=== PATIENT | male | born 1990 | race Caucasian/White ===

== ENCOUNTER 2017-09-18 14:06 | Emergency (ER) | payer OTHER ==
[~2017-09-18] VITALS: Ht 175.3 cm; Wt 68.0 kg
[2017-09-19 17:23] LABS: HCV Non Reactive (NR)
== END 2017-09-18 15:18 | disposition home or self-care (01) ==
LOC: ER 14:06
PROVIDERS: Physician Assistant
DX: Z77.21 Contact with and (suspected) exposure to potentially hazardous body fluids (principal)
CPT/HCPCS: 36415; 84460; 86703; 86706; 86803; 87340; 87389; 99283

== ENCOUNTER → 2017-12-18 | Outpatient (CLI) | payer OTHER, BC ==
[2017-12-20 03:23] LABS: HIV SCREEN 4TH GENERATION WRFX Non Reactive (Non Reactive)
== END | disposition home or self-care (01) ==
LOC: LAB EV 14:33 → LAB SHORT 14:33
PROVIDERS: Family Medicine
DX: Z20.9 Contact with and (suspected) exposure to unspecified communicable disease (principal)
CPT/HCPCS: 86803; 87389

== ENCOUNTER → 2018-09-22 | Outpatient (CLI) | payer OTHER, BC ==
[2018-09-24 05:56] LABS: HCV ANTIBODY 0.1 (0.0-0.9)
== END | disposition home or self-care (01) ==
LOC: LAB SHORT 14:35 → LAB EV 14:35
PROVIDERS: Physician Assistant
DX: Z20.9 Contact with and (suspected) exposure to unspecified communicable disease (principal)
CPT/HCPCS: 84460; 86317; 86803

== ENCOUNTER → 2019-06-20 | Outpatient (CLI) | payer BC | LOC: OLS 12:59 → LAB SHORT 12:59 | DX: N46.9 Male infertility, unspecified (principal) ==